=== PATIENT | female | born 1945 | race Caucasian/White ===

== ENCOUNTER 2025-07-29 14:22 | Emergency (ER) | payer MEDICARE, OTHER ==
[2025-07-29] MEDS ORDERED: Lidocaine/Transparent Dressing 1 EACH KIT ONE (15:08)
== END 2025-07-29 16:29 | disposition home or self-care (01) ==
LOC: CSHERS 14:22
DX: S92.512A Displaced fracture of proximal phalanx of left lesser toe(s), initial encounter for closed fracture (principal); S00.83XA Contusion of other part of head, initial encounter; S50.12XA Contusion of left forearm, initial encounter; I10 Essential (primary) hypertension; I25.10 Atherosclerotic heart disease of native coronary artery without angina pectoris; Z87.891 Personal history of nicotine dependence; W19.XXXA Unspecified fall, initial encounter
CPT/HCPCS: 20610